=== PATIENT | male | born 1980 | race Caucasian/White ===

== ENCOUNTER → 2021-12-21 11:28 | Outpatient (BNVA) | payer OTHER, SELFPAY | PROVIDERS: Visit Provider Nurse Practitioner Family | DX: Z20.822 Contact with and (suspected) exposure to COVID-19 (principal); Z20.828 Contact with and (suspected) exposure to other viral communicable diseases | CPT/HCPCS: 87635 ==

== ENCOUNTER 2025-03-08 22:57 | Emergency (ER) | payer SELFPAY ==
[2025-03-08 23:04] VITALS: BP 127/89; PULSE 73; RESP 18; TEMP 36.8; O2SAT 97; BMI 21.2
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
[2025-03-08] MEDS: ceFAZolin 1,000 MG in water for injection-sterile 2.5 ML 2.5 MG IM (23:53)
[2025-03-08] MEDS: tetanus-dipt-pertussis 0.5 mL SDV IM (23:56)
[2025-03-09] MEDS: morphine 4 mg/mL SDV 1 mL IM (00:20)
[2025-03-09] MEDS: ondansetron 2 mg/ML SDV 2 mL 4 MG IM (00:20)
[2025-03-09 01:10] VITALS: BP 123/82; PULSE 78; RESP 16; O2SAT 99
[2025-03-09 02:30] VITALS: PULSE 82; O2SAT 97
== END 2025-03-09 02:32 | disposition home or self-care (01) ==
PROVIDERS: Emergency Provider Physician Assistant
DX: T30.0 Burn of unspecified body region, unspecified degree (principal); X08.8XXA Exposure to other specified smoke, fire and flames, initial encounter; Z23 Encounter for immunization
CPT/HCPCS: 90471; 90715; 96372; 99284; J0690; J2270; J2405

== ENCOUNTER → 2025-06-09 15:41 | Outpatient (BNVA) | payer MEDICAID, SELFPAY | DX: Z76.89 Persons encountering health services in other specified circumstances (principal) | CPT/HCPCS: 80053; 85025; 86140 ==